=== PATIENT | male | born 1980 | race Caucasian/White ===

== ENCOUNTER 2017-03-07 09:06 | Emergency (ER) | payer OTHER ==
[2017-03-07] MEDS ORDERED: Ketorolac 60 MG/2 ML SDV IM ONE (09:30)
--- NOTE | 2017-03-07 09:30 | EDM.PDOC ---
ED HPI GENERAL MEDICAL PROBLEM - General Chief Complaint: Upper Extremity Injury/Pain Stated Complaint: LEFT ARM PAIN Time Seen by Provider: 03/07/17 09:28 - History of Present Illness INITIAL COMMENTS - FREE TEXT/NARRATIVE: HISTORY AND PHYSICAL: History of present illness: Patient 36-year-old male who suffers from acute left shoulder injury that occurred when he initiated a weight lifting program recently he denies any other trauma concern he states he was able to get through the workout but then he developed discomfort that got progressively worse. Review of systems: As per history of present illness and below otherwise all systems reviewed and negative. Past medical history: As per history of present illness and as reviewed below otherwise noncontributory. Surgical history: As per history of present illness and as reviewed below otherwise noncontributory. Social history: No reported history of drug or alcohol abuse. Family history: As per history of present illness and as reviewed below otherwise noncontributory. Physical exam: HEENT: Atraumatic, normocephalic, pupils reactive, negative for conjunctival pallor or scleral icterus, mucous membranes moist, throat clear, neck supple, nontender, trachea midline. Lungs: Clear to auscultation, breath sounds equal bilaterally, chest nontender. Heart: S1S2, regular, negative for clicks, rubs, or JVD. Abdomen: Soft, nondistended, nontender. Negative for masses or hepatosplenomegaly. Negative for costovertebral tenderness. Pelvis: Stable nontender. Genitourinary: Deferred. Rectal: Deferred. Extremities: Left shoulder is tenderness over the acromioclavicular joint there is no crepitation is limited range of motion secondary to pain neurovascular exam and C&S are unremarkable Neuro: Awake, alert, oriented. Cranial nerves II through XII unremarkable. Cerebellum unremarkable. Motor and sensory unremarkable throughout. Exam nonfocal. Diagnostics: X-ray left shoulder Therapeutics: Toradol 60 mg IM sling Impression: #1 acute shoulder injury Definitive disposition and diagnosis as appropriate pending reevaluation and review of above. left shoulder Pain Score (Numeric/FACES): 8 - Related Data Allergies Allergy/AdvReac Type Severity Reaction Status Date / Time Penicillins Allergy Tachycardia Verified 03/07/17 09:14 Home Meds: Home Meds . [No Known Home Meds] 08/07/14 [History] Past Medical History - Past Health History Medical/Surgical History: Denies Medical/Surgical History Social & Family History - Tobacco Use Smoking Status *Q: Never Smoker Used Tobacco, but Quit: Yes Month Tobacco Last Used: 2000 Second Hand Smoke Exposure: No - Alcohol Use Days Per Week of Alcohol Use: 3 Number of Drinks Per Day: 1 Total Drinks Per Week: 3 - Recreational Drug Use Recreational Drug Use: No Review of Systems - Review of Systems Review Of Systems: ROS reveals no pertinent complaints other than HPI. Trauma Exam - Physical Exam Exam: See Below (See dictation) Course - Vital Signs Last Recorded V/S: Last Vital Signs Temp 36.7 C 03/07/17 09:15 Pulse 80 03/07/17 09:15 Resp 18 03/07/17 09:15 BP 139/86 03/07/17 09:15 Pulse Ox 96 03/07/17 09:15 - Orders/Labs/Meds Orders: Active Orders 24 hr Category Date Time Status Shoulder Comp Lt [CR] Stat Exams 03/07/17 09:19 Ordered Meds: Medications Discontinued Medications Generic Name Dose Route Start Last Admin Trade Name Mike PRN Reason Stop Dose Admin Ketorolac Tromethamine 60 mg 03/07/17 09:30 Toradol IM 03/07/17 09:31 ONETIME ONE Departure - Departure Time of Disposition: 09:32 Disposition: Home, Self-Care 01 Condition: good Clinical Impression: Shoulder injury - Discharge Information Forms: ED Department Discharge Additional Instructions: The following information is given to patients seen in the emergency department who are being discharged to home. This information is to outline your options for follow-up care. We provide all patients seen in our emergency department with a follow-up referral. The need for follow-up, as well as the timing and circumstances, are variable depending upon the specifics of your emergency department visit. If you don't have a primary care physician on staff, we will provide you with a referral. We always advise you to contact your personal physician following an emergency department visit to inform them of the circumstance of the visit and for follow-up with them and/or the need for any referrals to a consulting specialist. The emergency department will also refer you to a specialist when appropriate. This referral assures that you have the opportunity for followup care with a specialist. All of these measure are taken in an effort to provide you with optimal care, which includes your followup. Under all circumstances we always encourage you to contact your private physician who remains a resource for coordinating your care. When calling for followup care, please make the office aware that this follow-up is from your recent emergency room visit. If for any reason you are refused follow-up, please contact the [facility] emergency department at and asked to speak to the emergency department charge nurse. [facility] [address], [address] [place] [address] Sling as directed hydrocodone as prescribed Motrin as directed call to schedule appointment with orthopedic surgery above as discussed return as needed as discussed - My Orders Last 24 Hours: My Active Orders 03/07/17 09:19 Shoulder Comp Lt [CR] Stat - Assessment/Plan Last 24 Hours: My Active Orders 03/07/17 09:19 Shoulder Comp Lt [CR] Stat
[2017-03-07 10:18] VITALS: BP 132/89
--- NOTE | 2017-03-08 13:56 | CR ---
EXAM DATE: 03/07/17 PATIENT'S AGE: 36 Patient: RISA MARKS Facility: [place], [place] Site . Site : 1980 Study: XRay Shoulder Left [id number]/[id number] 9:39:19 AM Ordering Physician: Doctor Short Final Report: HISTORY: Left shoulder pain after weight lifting. Technique: Left shoulder 3 views. Comparison: None. Findings: No fracture or dislocation. Glenohumeral joint space is preserved. Mild AC joint degenerative changes. Acromioclavicular alignment is maintained. Impression: No acute findings. Mild AC joint degenerative changes. Dictated by Laron Stone MD @ Mar 07 2017 9:40AM (Electronic Signature) Report Signed by Proxy. IVONNE
== END 2017-03-07 10:12 | disposition home or self-care (01) ==
LOC: MW.ED 09:06
DX: S49.92XA Unspecified injury of left shoulder and upper arm, initial encounter (principal); Z88.0 Allergy status to penicillin; X50.0XXA Overexertion from strenuous movement or load, initial encounter
CPT/HCPCS: 73030; 96372; 99283; A4566; J1885

== ENCOUNTER 2022-07-29 16:07 | Emergency (ER) | payer BC ==
[2022-07-29] MEDS ORDERED: Aspirin 81 MG Tab.Chew PO STA (16:45)
[2022-07-29 17:29] LABS: BLOOD UREA NITROGEN,BUN 15 mg/dL (7.0-18.0); CARBON DIOXIDE,CO2 25.3 mmol/L (21.0-32.0); CHLORIDE,CL 103 mmol/L (98-107); GLUCOSE RANDOM 92 mg/dL (74-106); LIPASE 108 U/L (73-393); POTASSIUM,K 3.7 mmol/L (3.5-5.1); SODIUM,NA 140 mmol/L (136-148)
[2022-07-29 17:30] LABS: ESTIMATED GFR 108 mL/min (>60)
[2022-07-29 20:22] VITALS: BP 140/100; PULSE 80
== END 2022-07-29 20:21 | disposition home or self-care (01) ==
LOC: MW.ED 16:07
DX: R07.89 Other chest pain (principal); Z88.0 Allergy status to penicillin
CPT/HCPCS: 36415; 71045; 80053; 83690; 83735; 84484; 85025; 85610; 99285; A9270; 93010; 99283

== ENCOUNTER 2025-04-06 01:44 | Emergency (ER) | payer BC ==
[2025-04-06 02:05] LABS: BASOPHILS ABSOLUTE AUTO 0.05 K/uL (0.00-0.20); BASOPHILS PERCENT AUTO 0.6 % (0.0-1.0); EOSINOPHILS ABSOLUTE AUTO 0.17 K/uL (0.00-0.45); HEMATOCRIT 44.8 % (42.0-52.0); HEMOGLOBIN 15.5 g/dL (14.0-18.0); IMMATURE GRAN ABSOLUTE AUTO 0.01 K/uL (0.00-0.05); IMMATURE GRAN PERCENT AUTO 0.1 % (0.0-0.4); LYMPHOCYTES ABSOLUTE AUTO 2.48 K/uL (1.00-4.80); LYMPHOCYTES PERCENT AUTO 29.6 % (24.0-44.0); MEAN CORPUSCULAR HEMOGLOBIN 29.8 pg (28.0-32.0); MEAN CORPUSCULAR HGB CONC 34.6 g/dL (32.0-36.0); MEAN PLATELET VOLUME 10.4 fL (9.4-12.4); MONOCYTES ABSOLUTE AUTO 0.68 K/uL (0.00-0.80); MONOCYTES PERCENT AUTO 8.1 % (0.0-8.0); NEUTROPHILS PERCENT AUTO 59.6 % (41.0-71.0); PLATELET COUNT,PLT 196 K/uL (150-400); RED BLOOD CELL COUNT 5.21 M/uL (4.52-5.90); WHITE BLOOD CELL COUNT,WBC 8.39 K/uL (3.9-11.3)
[2025-04-06] MEDS: Ondansetron 4 MG/2 ML SDV IVPUSH ONE (02:09)
[2025-04-06] MEDS: HYDROmorphone 0.5 MG/0.5 ML Syringe IVPUSH ONE ×2 (02:10→04:31)
[2025-04-06] MEDS: Iopamidol 755 MG/ML 500 ML Multipack Bottle IVPUSH ONE (02:28)
[2025-04-06 02:30] LABS: A/G RATIO 1.4 (0.9-1.6); BILIRUBIN TOTAL 0.4 mg/dL (0.2-1.0); CALCIUM 8.7 mg/dL (8.5-10.1); CARBON DIOXIDE,CO2 25.5 mmol/L (21.0-32.0); CREATININE 1.3 mg/dL (0.8-1.3); EST CRCL DRUG DOSING (CG) 75.62 mL/min; POTASSIUM,K 3.7 mmol/L (3.5-5.1); PROTEIN TOTAL,TP 6.9 g/dL (6.4-8.2)
[2025-04-06] MEDS: Morphine 4 MG/ML Syringe IM ONE (02:40)
[2025-04-06 03:16] VITALS: BP 155/104; PULSE 60
[2025-04-06 03:43] LABS: APPEARANCE,URINE CLEAR; BILIRUBIN,URINE NEGATIVE (NEGATIVE); COLOR,URINE YELLOW; GLUCOSE,URINE NEGATIVE (NEGATIVE); KETONES,URINE >=80 mg/dL (NEGATIVE); LEUKOCYTE ESTERASE,URINE NEGATIVE (NEGATIVE); NITRITE,URINE NEGATIVE (NEGATIVE); OCCULT BLOOD,URINE NEGATIVE (NEGATIVE); PH,URINE 7.5 (5.0-8.0); PROTEIN,URINE NEGATIVE (NEGATIVE); UROBILINOGEN,URINE 0.2 EU/dL (<2.0)
[2025-04-06 03:52] LABS: EPITHELIAL CELLS,URINE OCCASIONAL (NONE-FEW); RBC,URINE 0-1 (0-2/HPF); WBC,URINE 0-1 (0-5/HPF)
[2025-04-06 03:53] LABS: BACTERIA,URINE RARE (NEGATIVE)
[2025-04-06] MEDS: Ketorolac 30 MG/ML SDV IVPUSH ONE (04:31)
== END 2025-04-06 05:34 | disposition home or self-care (01) ==
LOC: MW.ED 01:44
DX: R10.13 Epigastric pain (principal); Z88.0 Allergy status to penicillin; Z79.899 Other long term (current) drug therapy
CPT/HCPCS: 36415; 71045; 74177; 76705; 80053; 81001; 83690; 84484; 85025; 93005; 96374; 96375; 99284; J2405; Q9967; 93010; J1171

== ENCOUNTER 2025-04-10 08:50 | Observation (INO) | payer BC ==
[2025-04-10] MEDS: Pantoprazole 40 MG in Sodium Chloride 0.9% 10 ML IVPUSH ONE (06:29)
[2025-04-10] MEDS: Lidocaine 2% Viscous Solution 15 ML UD PO ONE (06:29)
[2025-04-10 06:32] LABS: BASOPHILS ABSOLUTE AUTO 0.03 K/uL (0.00-0.20); BASOPHILS PERCENT AUTO 0.3 % (0.0-1.0); EOSINOPHILS ABSOLUTE AUTO 0.21 K/uL (0.00-0.45); EOSINOPHILS PERCENT AUTO 2.3 % (0.0-6.0); IMMATURE GRAN ABSOLUTE AUTO 0.02 K/uL (0.00-0.05); IMMATURE GRAN PERCENT AUTO 0.2 % (0.0-0.4); LYMPHOCYTES ABSOLUTE AUTO 1.51 K/uL (1.00-4.80); LYMPHOCYTES PERCENT AUTO 16.6 % (24.0-44.0); MEAN PLATELET VOLUME 10.3 fL (9.4-12.4); MONOCYTES ABSOLUTE AUTO 0.77 K/uL (0.00-0.80); MONOCYTES PERCENT AUTO 8.4 % (0.0-8.0); NEUTROPHILS ABSOLUTE AUTO 6.58 K/uL (1.80-7.70); NEUTROPHILS PERCENT AUTO 72.2 % (41.0-71.0); NRBC ABSOLUTE 0.00 K/uL (0.00-0.02); NRBC PERCENT 0.0 /100WBC (0.0-0.2); PLATELET COUNT,PLT 187 K/uL (150-400); RED BLOOD CELL COUNT 5.27 M/uL (4.52-5.90); WHITE BLOOD CELL COUNT,WBC 9.12 K/uL (3.9-11.3)
[2025-04-10] MEDS: Iopamidol 755 MG/ML 500 ML Multipack Bottle IVPUSH ONE (06:45)
[2025-04-10 06:57] LABS: A/G RATIO 1.1 (0.9-1.6); ALANINE AMINOTRANSFERASE,ALT 36.0 IU/L (14-63); ASPARTATE AMNIOTRANSFERASE,AST 22.0 IU/L (15-37); BILIRUBIN TOTAL 0.8 mg/dL (0.2-1.0); BLOOD UREA NITROGEN,BUN 10.0 mg/dL (7.0-18.0); CARBON DIOXIDE,CO2 26.5 mmol/L (21.0-32.0); CHLORIDE,CL 103.0 mmol/L (98-107); CREATININE 1.1 mg/dL (0.8-1.3); EST CRCL DRUG DOSING (CG) 89.37 mL/min; GLUCOSE RANDOM 111.0 mg/dL (74-106); POTASSIUM,K 4.0 mmol/L (3.5-5.1); PROTEIN TOTAL,TP 7.3 g/dL (6.4-8.2); SODIUM,NA 140.0 mmol/L (136-148)
[2025-04-10 07:01] LABS: ESTIMATED GFR 84.0 mL/min (>60)
[~2025-04-10 08:50] MED LIST: Morphine 10 MG/ML SDV ONE; Propofol 200 MG/20 ML SDV ONE; Ropivacaine 0.5% 5 MG/ML 30 ML SDV ONE; dexmedeTOMIDine HCl 200 MCG/2 ML SDV ONE
[2025-04-10] MEDS ORDERED: fentaNYL 100 MCG/2 ML SDV ONE (08:51)
[2025-04-10] MEDS ORDERED: Dexamethasone 4 MG/ML 5 ML MDV ONE (08:51)
[2025-04-10] MEDS ORDERED: Ondansetron 4 MG/2 ML SDV ONE (08:51)
[2025-04-10] MEDS ORDERED: Midazolam 1 MG/ML 2 ML SDV ONE (08:51)
[2025-04-10] MEDS ORDERED: Albuterol 0.083% 2.5 MG/3 ML Neb Soln NEB PRN (09:08)
[2025-04-10] MEDS ORDERED: Ondansetron 4 MG/2 ML SDV IVPUSH PRN (09:08)
[2025-04-10] MEDS ORDERED: fentaNYL 50 MCG/ML SDV IVPUSH PRN (09:08)
[2025-04-10] MEDS ORDERED: Naloxone 0.4 MG/ML SDV IVPUSH PRN (09:08)
[2025-04-10] MEDS ORDERED: Metoprolol Tartrate 5 MG/5 ML SDV ONE (10:04)
[2025-04-10] MEDS: Lactated Ringers 1,000 ML IV SCH ×2 (13:17→21:53)
[2025-04-10] MEDS: Acetaminophen/HYDROcodone 325-5 MG Tab PO PRN (15:32)
[2025-04-11 05:37] LABS: BASOPHILS ABSOLUTE AUTO 0.01 K/uL (0.00-0.20); BASOPHILS PERCENT AUTO 0.1 % (0.0-1.0); EOSINOPHILS ABSOLUTE AUTO 0.00 K/uL (0.00-0.45); EOSINOPHILS PERCENT AUTO 0.0 % (0.0-6.0); IMMATURE GRAN ABSOLUTE AUTO 0.02 K/uL (0.00-0.05); IMMATURE GRAN PERCENT AUTO 0.2 % (0.0-0.4); LYMPHOCYTES ABSOLUTE AUTO 0.79 K/uL (1.00-4.80); LYMPHOCYTES PERCENT AUTO 7.1 % (24.0-44.0); MEAN PLATELET VOLUME 10.3 fL (9.4-12.4); MONOCYTES ABSOLUTE AUTO 0.75 K/uL (0.00-0.80); MONOCYTES PERCENT AUTO 6.8 % (0.0-8.0); NEUTROPHILS ABSOLUTE AUTO 9.50 K/uL (1.80-7.70); NEUTROPHILS PERCENT AUTO 85.8 % (41.0-71.0); NRBC ABSOLUTE 0.00 K/uL (0.00-0.02); NRBC PERCENT 0.0 /100WBC (0.0-0.2); PLATELET COUNT,PLT 174 K/uL (150-400); RED BLOOD CELL COUNT 3.97 M/uL (4.52-5.90); WHITE BLOOD CELL COUNT,WBC 11.07 K/uL (3.9-11.3)
[2025-04-11 17:10] VITALS: BP 130/77; PULSE 82
== END 2025-04-11 17:10 | disposition home or self-care (01) ==
LOC: MW.SDS 08:50 → MW.MS 08:50 → MW.ED 08:52 → MW.SDS 08:55 → MW.MS 12:37
PROVIDERS: ADMIT Surgery; ATTEND Surgery
DX: K80.12 Calculus of gallbladder with acute and chronic cholecystitis without obstruction (principal); K65.8 Other peritonitis; Z88.0 Allergy status to penicillin; Z79.899 Other long term (current) drug therapy
CPT/HCPCS: 36415; 47562; 74177; 80053; 83690; 84484; 85018; 85025; 86850; 86900; 86901; 93005; 96361; 96374; 96375; 99285; A9270; J0665; J0690; J1100; J1171; J1308; J2003; J2250; J2270; J2272; J2470; J2704; J2795; J3010; J3490; J7030; J7120; Q9967; 00790; 64488; J2405